=== PATIENT | male | born 1965 | race Caucasian/White ===

== ENCOUNTER 2016-03-29 20:54 | Emergency (ER) | payer MEDICARE ==
[2016-03-29] MEDS ORDERED: CEFTRIAXONE SODIUM 2 GM ONE (22:39)
[2016-03-29] MEDS ORDERED: ONDANSETRON 4 MG ODT TAB ONE (22:54)
[2016-03-29] MEDS ORDERED: HYDROCODONE/ACETAMINOPHEN 5/325MG TABLET ONE (22:54)
--- NOTE | 2016-03-30 05:31 | RAD ---
HAND LEFT 2 VIEWS HISTORY: Index finger swelling. COMPARISONS: None. FINDINGS: 2 views of the left hand were performed demonstrating a subtle lucency involving the proximal aspect of the third metacarpal with cortical thickening, possibly residua of a chronic fracture. No acute osseous abnormalities are observed. The alignment is appropriate. The joint spaces are relatively well-maintained. Asymmetric soft tissue swelling is evident involving the second ray. IMPRESSION: 1. A lucency with cortical thickening involving the proximal third metacarpal which may be residua of a chronic fracture. No acute fracture is visualized. 2. Asymmetric soft tissue swelling involving the second ray.
== END 2016-03-29 23:43 | disposition home or self-care (01) ==
LOC: ED 20:54
DX: L02.512 Cutaneous abscess of left hand (principal)

== ENCOUNTER 2016-05-17 00:23 | Emergency (ER) | payer MEDICARE ==
[2016-05-17] MEDS ORDERED: PROPARACAINE HCL 0.5% 300 GTTS/BOT SOLN.DROP ONE (00:52)
[2016-05-17] MEDS ORDERED: HYDROCODONE/ACETAMINOPHEN 5/325MG TABLET ONE (03:42)
[2016-05-17] MEDS ORDERED: ERYTHROMYCIN OPHTH OINT 0.5% 1 APPLIC/TUBE ONE (03:47)
== END 2016-05-17 03:57 | disposition home or self-care (01) ==
LOC: ED 00:23
DX: T26.12XA Burn of cornea and conjunctival sac, left eye, initial encounter (principal); X08.8XXA Exposure to other specified smoke, fire and flames, initial encounter; Y93.H3 Activity, building and construction; Y92.69 Other specified industrial and construction area as the place of occurrence of the external cause